=== PATIENT | female | born 1995 | race Caucasian/White ===

== ENCOUNTER 2017-01-05 11:02 | Emergency (ER) | payer OTHER ==
[2017-01-05 11:35] VITALS: BP 130/67
--- NOTE | 2017-01-05 11:42 | PHYS DOC ---
Past History Past Medical History: Anxiety Past Surgical History: No Surgical History Alcohol Use: None Drug Use: None Adult General Chief Complaint Chief Complaint: SHORTNESS OF BREATH HPI HPI Patient is a 21-year-old female brought to the ED by her mother with multiple complaints. The patient has been having symptoms of anxiety. She saw her doctor on Tuesday, 01/03, and was prescribed Lexapro. She was supposed to take one half daily for a week and then increase to 1. She did take one half on Tuesday and Tuesday, she has not taken one yet today. Patient states that today she feels very anxious. She feels panicky. She felt short of air. She has tingling, mostly on the back of her neck. Yesterday she had diarrhea. She stayed in bed all day because she was dizzy and nauseated. She did not vomit. Patient is attributing her symptoms to Lexapro. Patient had seen her doctor in August with the complaint of anxiety and was prescribed propranolol 20 mg 3 times a day when necessary anxiety symptoms. She states it is not really helping. She brings the bottle with her, prescribed in August and containing 90, there are still quite a few pills in the bottle. She did take one this morning. She also has been on Seroquel for about 2 years for sleep. That works well for her. 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 She gets particularly anxious when she has to retail cashier. They try to keep her off of that duty but sometimes she is required to. The patient does not have any known chronic medical problems other than this. The patient does use caffeine although has just had "a sip" today. She does smoke cigarettes. She denies use of any illicit stimulants. The patient does have an appointment at [facility] this afternoon in her doctor's office. I'm unclear why she came to the emergency department just about 4 hours before that appointment. Review of Systems Review of Systems Constitutional: Denies fever or chills [] Respiratory: Denies cough Cardiovascular: Denies chest pain GI: As in history of present illness Neurologic: Denies headache Allergies Allergies Allergies Coded Allergies Type Severity Reaction Last Updated Verified Penicillins Allergy Unknown 01/05/17 No Physical Exam Physical Exam Constitutional: Well developed, well nourished, no acute distress, non-toxic appearance. Alert, mentating normally. She does appear anxious. Every few breaths, she takes an extra deep breath. She does not appear dyspneic. Pulse ox on room air 100%. Heart rate 69. HENT: Normocephalic, atraumatic, bilateral external ears normal, nose normal. [] Eyes: conjunctiva normal, no discharge. [] Neck: Normal range of motion, supple, no stridor. [] Cardiovascular:Heart rate regular rhythm, no murmur [] Lungs & Thorax: Bilateral breath sounds clear to auscultation , good breath sounds throughout, no wheezes. Skin: Warm, dry, no erythema, no rash. [] Extremities: No tenderness, no cyanosis, no clubbing, ROM intact, no edema. [] Neurologic: Alert and oriented X 3, normal motor function, normal sensory function, no focal deficits noted. [] Current Patient Data Vital Signs Vital Signs Date Time Temp Pulse Resp B/P (MAP) Pulse Ox O2 Delivery O2 Flow Rate FiO2 01/05/17 11:35 73 20 130/67 (88) 98 Room Air 01/05/17 11:02 98.8 EKG EKG [] Radiology/Procedures Radiology/Procedures [] Course & Med Decision Making Course & Med Decision Making Pertinent Labs and Imaging studies reviewed. (See chart for details) 21-year-old female with a history of anxiety presents with symptoms that she and her mother had attributed to possibly reaction or side effect to Lexapro which was started on 01/03, but the symptoms sound to me more like anxiety related symptoms. The patient adamantly denies depression, suicidal ideation. Her anxiety is not a depression type anxiety. She was seen 2 days ago in the doctor's office and had labs done. We called the doctor's office and asked them to fax the lab results. I reviewed those lab results and they are completely within normal limits. Her hemoglobin is 14.7, remainder of CBC is normal. Her metabolic panel is completely normal with a glucose of 84, sodium 138, potassium 5.1, normal transaminases. Her TSH is normal at 1.93. I discussed with the patient and her mother that today her medical screening exam is normal. Her vitals including pulse ox are normal. Her labs are normal. Her physical exam is normal. I believe she is safe for discharge to follow up with her doctor. She has a doctor's appointment this afternoon and I encouraged her to keep that. I discussed with them that she may benefit from a few weeks of some type of therapy to help her better identify and deal with symptoms of anxiety. I also encouraged her to avoid stimulants including nicotine and caffeine. [] Dragon Disclaimer Dragon Disclaimer This chart was dictated in whole or in part using Voice Recognition software in a busy, high-work load, and often noisy Emergency Department environment. It may contain unintended and wholly unrecognized errors or omissions. Departure Departure: Impression: Primary Impression: Anxiety Disposition: 01 HOME, SELF-CARE Condition: STABLE Referrals: MARTI MCKEON DO (PCP) Patient Instructions: Anxiety and Panic Attacks, [id number] Additional Instructions: As we discussed, I recommend that you avoid stimulants including nicotine and caffeine. These can make anxiety symptoms worse. As we discussed, I am not convinced that your symptoms today are a reaction to Lexapro, instead your symptoms may be from your anxiety itself. Consider starting Lexapro at even a smaller dose like one fourth daily for a few days, then increasing to one half daily as instructed by your doctor. See your doctor as planned at this afternoon. I recommend that you discuss with your doctor possibly having a few sessions with someone in mental health such as a therapist, to help you deal with the symptoms of anxiety. SUNG BYRNES MD January 05, 2017 11:42
== END 2017-01-05 11:47 | disposition home or self-care (01) ==
LOC: ER 11:02
DX: F41.9 Anxiety disorder, unspecified (principal); F17.210 Nicotine dependence, cigarettes, uncomplicated; Z88.0 Allergy status to penicillin
CPT/HCPCS: 99284